=== PATIENT | female | born 1940 | race Caucasian/White ===

== ENCOUNTER 2019-01-01 01:46 | Inpatient (IN) | payer MEDICARE ==
[~2019-01-01] VITALS: Ht 154.9 cm; Wt 71.2 kg
[2019-01-01 02:10] VITALS: BP 143/91
--- NOTE | 2019-01-01 02:10 | NUR ---
ED Nurse Note: noted left facial drooping.
--- NOTE | 2019-01-01 02:10 | NUR ---
ED Nurse Note: pt brought in by sara from home c/c epigastric region pain and dizziness started about an hour ago, pt reports she just came to [place] from [facility] that she had stroke on 12/19/18 and was hospitalized in [place]. noted marked weakness on left side of patient. pt AA&ox4, gcs=15, skin warm and dry, resp even and unlabored on RA, -n/v/d, will cont monitor. skin intact. vss.
[2019-01-01] MEDS: Sodium Chloride 550 ML IV SCH ×3 (02:14→09:49)
--- NOTE | 2019-01-01 02:15 | NUR ---
ED Nurse Note: pt off to CT.
[2019-01-01 02:19] LABS: BASOPHILS % (AUTO) 1.2 % (0.0-2.0); HEMATOCRIT 56.3 % (37.0-47.0); MEAN CORPUSCULAR VOLUME 88 FL (80-99); MONOCYTES % (AUTO) 5.9 % (1.0-10.0); NEUTROPHILS % (AUTO) 72.9 % (45.0-75.0); PLATELET COUNT 210 K/UL (150-450); RED BLOOD COUNT 6.37 M/UL (4.20-5.40); RED CELL DISTRIBUTION WIDTH 11.5 % (11.6-14.8); WHITE BLOOD COUNT 8.7 K/UL (4.8-10.8)
[2019-01-01 02:29] LABS: ANION GAP 10 mmol/L (5-15); BLOOD UREA NITROGEN 26 mg/dL (7-18); CARBON DIOXIDE 23 MMOL/L (21-32); CHLORIDE 109 MMOL/L (98-107); CREATININE 0.8 MG/DL (0.55-1.30); POTASSIUM 3.9 MMOL/L (3.5-5.1); SODIUM 142 MMOL/L (136-145)
--- NOTE | 2019-01-01 02:30 | NUR ---
ED Nurse Note: provided pt with extra warm blanket for comfort, pt advised to notify staff if needed assist.
--- NOTE | 2019-01-01 02:32 | Emergency Room Report ---
History of Present Illness General Chief Complaint: Dizziness Source: Patient, Family Member Present Illness HPI On December 19 the patient had slurred speech drooling and left-sided weakness - this occurred in the afternoon. She is not sure of exact time.. The next day she was nonambulatory and was taken to the hospital in [place]. She was diagnosed with a stroke at that time however it was past the time to be able to give her thrombolytics or have a clot recovery if that was available. Apparently she had a fall a few days before that. She also has a history of uncontrolled hypertension. She was discharged to home after 4 days. She had in-home health care there. She has been having difficulty swallowing and lack of sensation in her mouth and drooling from the left-hand side. Had a mild cough recently. She denies any fevers or chills. She denies headache at this time. She is been able to take her medications. However the family felt that she was not receiving adequate care in [place] and brought her back. She came to the emergency department 1 hour after landing. No fevers, chills, sore throat, chest pain, palpitations, nausea, vomiting, diarrhea, dysuria, abdominal pain, shortness of breath, joint pain, rashes, depression, anxiety, visual changes, headache. Allergies: Coded Allergies: No Known Allergies (Unverified , 01/01/19) Patient History Past Medical History: see triage record Social History: Denies: smoking Social History Narrative Living in [place], retired and Last Menstrual Period: na Now: No Reviewed Nursing Documentation: PMH: Agreed; PSxH: Agreed Nursing Documentation-PMH Hx Hypertension: Yes Hx Cerebrovascular Accident: Yes Review of Systems All Other Systems: negative except mentioned in HPI Physical Exam Vital Signs Date Time Temp Pulse Resp B/P (MAP) Pulse Ox O2 Delivery O2 Flow Rate FiO2 01/01/19 01:51 97.2 66 17 160/98 (118) 100 Room Air Sp02 EP Interpretation: reviewed, normal General Appearance: well appearing, no apparent distress, GCS 15 Head: normocephalic Eyes: bilateral eye normal inspection, bilateral eye PERRL, bilateral eye EOMI ENT: moist mucus membranes, other - Left nasolabial fold weakness Neck: supple Respiratory: chest non-tender, lungs clear, normal breath sounds Cardiovascular #1: regular rate, rhythm Cardiovascular #2: 2+ radial (R) Gastrointestinal: normal inspection, normal bowel sounds, non tender, no mass, non-distended Genitourinary: no CVA tenderness Musculoskeletal: back normal, normal range of motion Neurologic: alert, oriented x3, motor weakness - L weakness, sensory deficit - Left, Babinski - left Psychiatric: mood/affect normal Skin: no rash Medical Decision Making Diagnostic Impression: Primary Impression: Status post stroke Additional Impressions: Polycythemia Failure to thrive Qualified Codes: R62.7 - Adult failure to thrive Dysphagia as late effect of cerebrovascular accident (CVA) ER Course Patient suffered a left MCA infarct on December 19. She has been having difficulty with swallowing and unable to eat well or be cared for in [place]. Differential includes CVA extension, acute myocardial infarction, electrolyte imbalance, dysphagia secondary to stroke, occult infection amongst others. Patient will be evaluated with CT of the head, EKG, chest x-ray and labs. The patient will be treated with IV hydration here. She denies pain at this time. Apparently the family feel that she was unable to get adequate care in [place]. EKG without acute injury. Chest x-ray left base. CT of the head with right MCA subacute infarct. Labs significant for polycythemia with normal white count. Other labs unremarkable. Due to the subacute infarct the patient needs to be admitted here. In addition the polycythemia needs to be evaluated in she needs IV hydration. She needs to have swallowing evaluation before continuing oral intake. Patient admitted to Dr. Aponte. Laboratory Tests Test 01/01/19 02:05 01/01/19 02:58 White Blood Count 8.7 K/UL (4.8-10.8) Red Blood Count 6.37 M/UL (4.20-5.40) H Hemoglobin 19.6 G/DL (12.0-16.0) *H Hematocrit 56.3 % (37.0-47.0) H Mean Corpuscular Volume 88 FL (80-99) Mean Corpuscular Hemoglobin 30.8 PG (27.0-31.0) Mean Corpuscular Hemoglobin Concent 34.8 G/DL (32.0-36.0) Red Cell Distribution Width 11.5 % (11.6-14.8) L Platelet Count 210 K/UL (150-450) Mean Platelet Volume 6.9 FL (6.5-10.1) Neutrophils (%) (Auto) 72.9 % (45.0-75.0) Lymphocytes (%) (Auto) 17.0 % (20.0-45.0) L Monocytes (%) (Auto) 5.9 % (1.0-10.0) Eosinophils (%) (Auto) 3.0 % (0.0-3.0) Basophils (%) (Auto) 1.2 % (0.0-2.0) Prothrombin Time 10.2 SEC (9.30-11.50) Prothrombin Time INR 1.0 (0.9-1.1) PTT 25 SEC (23-33) Sodium Level 142 MMOL/L (136-145) Potassium Level 3.9 MMOL/L (3.5-5.1) Chloride Level 109 MMOL/L (98-107) H Carbon Dioxide Level 23 MMOL/L (21-32) Anion Gap 10 mmol/L (5-15) Blood Urea Nitrogen 26 mg/dL (7-18) H Creatinine 0.8 MG/DL (0.55-1.30) Estimate Glomerular Filtration Rate mL/min (>60) Glucose Level 137 MG/DL (74-106) H Calcium Level 10.0 MG/DL (8.5-10.1) Total Bilirubin 0.6 MG/DL (0.2-1.0) Aspartate Amino Transferase (AST) 20 U/L (15-37) Alanine Aminotransferase (ALT) 38 U/L (12-78) Alkaline Phosphatase 72 U/L (46-116) Total Creatine Kinase 21 U/L (26-308) L Troponin I 0.000 ng/mL (0.000-0.056) Pro-B-Type Natriuretic Peptide 84 pg/mL (0-125) Total Protein 6.9 G/DL (6.4-8.2) Albumin 3.6 G/DL (3.4-5.0) Globulin 3.3 g/dL Albumin/Globulin Ratio 1.1 (1.0-2.7) Urine Color Brown Urine Appearance Clear Urine pH 5 (4.5-8.0) Urine Specific [place] 1.030 (1.005-1.035) Urine Protein 2+ (NEGATIVE) H Urine Glucose (UA) Negative (NEGATIVE) Urine Ketones Negative (NEGATIVE) Urine Blood Negative (NEGATIVE) Urine Nitrite Negative (NEGATIVE) Urine Bilirubin Negative (NEGATIVE) Urine Urobilinogen 1 MG/DL (0.0-1.0) H Urine Leukocyte Esterase 1+ (NEGATIVE) H Urine RBC 0-2 /HPF (0 - 2) Urine WBC 0-2 /HPF (0 - 2) Urine Squamous Epithelial Cells Occasional /LPF Urine Calcium Oxalate Crystals Few /LPF (NONE) Urine Bacteria Occasional /HPF (NONE) EKG Diagnostic Results Rate: normal Rhythm: NSR ST Segments: no acute changes Rhythm Strip Diag. Results EP Interpretation: yes Rhythm: NSR, no PVC's, no ectopy Chest X-Ray Diagnostic Results Chest X-Ray Diagnostic Results : Chest X-Ray Ordered: Yes # of Views/Limited/Complete: 1 View Indication: Other EP Interpretation: Yes Interpretation: no effusion, no pneumothorax, other - atelectasis L Impression: Other Electronically Signed by: Electronically signed by Naveen Curtis MD CT/MRI/US Diagnostic Results CT/MRI/US Diagnostic Results : Imaging Test Ordered: head Impression 1. Subacute versus old infarct in the right periventricular region. 2. Chronic small vessel ischemic disease and age-related cerebral atrophy. Last Vital Signs Date Time Temp Pulse Resp B/P (MAP) Pulse Ox O2 Delivery O2 Flow Rate FiO2 01/01/19 09:12 64 132/80 01/01/19 08:00 98.0 18 97 01/01/19 06:29 Room Air Status: improved Disposition: ADMITTED INPATIENT Condition: Serious Naveen Curtis MD Jan 01, 2019 02:32
[2019-01-01 02:40] LABS: ALANINE AMINOTRANSFERASE 38 U/L (12-78); ALBUMIN 3.6 G/DL (3.4-5.0); ALBUMIN/GLOBULIN RATIO 1.1 (1.0-2.7); ALKALINE PHOSPHATASE 72 U/L (46-116); ASPARTATE AMINO TRANSFERASE 20 U/L (15-37); BILIRUBIN,TOTAL 0.6 MG/DL (0.2-1.0); CREATINE KINASE 21 U/L (26-308); HEMOGLOBIN 19.6 G/DL (12.0-16.0)
[2019-01-01 03:00] VITALS: BP 136/81
--- NOTE | 2019-01-01 03:00 | NUR ---
ED Nurse Note: pt's step son at the bedside, pt's clothes given to step son and sent home. Dana Rene [phone]
--- NOTE | 2019-01-01 03:08 | Diagnostic Imaging Report ---
EXAM: CT Head Without Intravenous Contrast CLINICAL HISTORY: CVA TECHNIQUE: Axial computed tomography images of the head/brain without intravenous contrast. CTDI is 70 mGy and DLP is 1379 mGy-cm. One or more of the following dose reduction techniques were used: automated exposure control, adjustment of the mA and/or kV according to patient size, use of iterative reconstruction technique. COMPARISON: No relevant prior studies available. FINDINGS: Brain: Subacute versus old infarct in the right periventricular region measures 2.3 x 0.9 cm. Chronic small vessel ischemic disease. Generalized age-related cerebral volume loss. No hemorrhage. Ventricles: Unremarkable. No ventriculomegaly. Bones/joints: Unremarkable. No acute fracture. Soft tissues: Unremarkable. Sinuses: Unremarkable as visualized. No acute sinusitis. Mastoid air cells: Unremarkable as visualized. No mastoid effusion. IMPRESSION: 1. Subacute versus old infarct in the right periventricular region. 2. Chronic small vessel ischemic disease and age-related cerebral atrophy.
[2019-01-01 03:14] LABS: APPEARANCE,URINE CLEAR; BILIRUBIN, URINE NEGATIVE (NEGATIVE); COLOR,URINE BROWN; GLUCOSE, URINE (UA) NEGATIVE (NEGATIVE); KETONES,URINE NEGATIVE (NEGATIVE); LEUKOCYTE ESTERASE ,URINE 1+ (NEGATIVE); NITRITE,URINE NEGATIVE (NEGATIVE); PH,URINE 5 (4.5-8.0); PROTEIN,URINE 2+ (NEGATIVE); UROBILINOGEN,URINE 1 MG/DL (0.0-1.0)
--- NOTE | 2019-01-01 03:24 | NUR ---
HAND-OFF: Report given to LOGAN Snell and endorsed care, vss, iv intact and patent,safety precautions in place.
--- NOTE | 2019-01-01 03:25 | NUR ---
ED Nurse Note: report received asaelanthony Zhao RN. Pt in bed. VSS.
--- NOTE | 2019-01-01 03:33 | Diagnostic Imaging Report ---
EXAM: XR Chest, 1 View CLINICAL HISTORY: CVA TECHNIQUE: Frontal view of the chest. COMPARISON: No relevant prior studies available. FINDINGS: Lungs: Linear airspace disease is seen at the left lung base. Pleural space: Unremarkable. No pneumothorax. Heart: Unremarkable. No cardiomegaly. Mediastinum: Unremarkable. Bones/joints: Unremarkable. IMPRESSION: Linear airspace disease at the left lung base which could represent atelectasis, scarring, or pneumonia. No other acute findings.
[2019-01-01] MEDS ORDERED: LOPRESSOR HCT1 EAC3 ORAL (04:29)
[2019-01-01] MEDS ORDERED: NORVASC5 MG ORAL (04:29)
[2019-01-01] MEDS ORDERED: MICARDIS80 MG ORAL (04:29)
[2019-01-01] MEDS ORDERED: HYDROCHLOROTHIA25 MG ORAL ×2 (04:29→05:21)
[2019-01-01] MEDS ORDERED: ASPIRIN81 MG ORAL (04:29)
[2019-01-01] MEDS ORDERED: METOPROLOL SUCC25 MG ORAL ×2 (04:29→05:21)
[2019-01-01] MEDS ORDERED: LIPITOR80 MG ORAL ×2 (04:29→05:21)
--- NOTE | 2019-01-01 04:43 | NUR ---
ED Nurse Note: pt brought to room 415-1 via gurney in stable condition. VSS. Report given to LOGAN Elizalde. Belonging list signed.
--- NOTE | 2019-01-01 04:45 | NUR ---
NURSE NOTES: Received report from LOGAN Snell in ER. Patient arrived in the unit at 0445. Patient AAO x 4. Left sided weakness s/p stroke apparent. Breathing unlabored without signs of distress, discomfort, or sob. Denies pain at this time. Oriented to the unit. IV site noted on the right forearm intact, clean, dry, and patent. Bed placed at the lowest with alarm, brake, and side rails up for safety. Belonging confirmed with patient (watch and reading glasses), kept by the patient. Skin intact with dryness on the bilateral groins noted. Skin cool to touch. Provided blanket and socks. VS: 138/76 T.97.5 HR 61 RR 14 O2 93% on room air. Dr. Eulogio Aponte called to place an order for admission. Medication order confirm and read back: amlodipine 5mg BID, aspirin 325 mg tab oral daily, atorvastatin 80 mg tab oral at bedtime, hydrochlorothiazide 25 mg oral daily, and metoprolol succinate 25 mg oral daily. No IVF ordered. Regular diet. ST/OT/PT evaluation. Full code. Heparin 5000u/ml for DVT prophylaxis. No labs. Consults will be made after further review. Will continue to monitor and provide care as ordered. Addendum: 01/01/19 at 0652 by Tonio Hagan RN Synthroid 125 mcg PO daily was confirmed with Dr. Andrade.
[2019-01-01] MEDS ORDERED: ASPIRIN325 MG ORAL (05:21)
[2019-01-01] MEDS ORDERED: AMLODIPINE BESYL5 MG ORAL (05:21)
[2019-01-01] MEDS: Levothyroxine 125mcg tab ORAL SCH (06:49)
--- NOTE | 2019-01-01 07:00 | NUR ---
NURSE NOTES: Reached Dr. Eulogio Aponte to clarify Hydrochlorothiazide medication. Waiting for call back. Informed AM nurse.
[2019-01-01 08:00] VITALS: BP 132/80
--- NOTE | 2019-01-01 08:10 | NUR ---
NURSE NOTES: Received report from Minsu, RN. The patient is resting on bed without acute distress or shortness of breath. The patient's bed in the lowest position, call light in reach, and fall and aspiration precaution reinforced. IV site intact and patent. Will continue plan of care.
--- NOTE | 2019-01-01 08:23 | NUR ---
NURSE NOTES: Reported Dr. Aponte regarding CT of head report. Will wait for the call back. Will continue plan of care.
--- NOTE | 2019-01-01 08:34 | NUR ---
HAND-OFF: Report given to Reina Jane RN.
[2019-01-01] MEDS: Metoprolol Succinate XL 25mg tab ORAL SCH (09:12)
[2019-01-01] MEDS: Heparin 5000 units/ml inj SUBQ SCH ×2 (09:13→21:33)
--- NOTE | 2019-01-01 10:23 | NUR ---
NURSE NOTES: Notified Dr. Aponte regarding head CT report again and the patient's complaints of headache. No pain medication ordered at this time. Will wait for call back and will closely monitor the patient. Will carry out the order as soon as receives it. Will continue plan of care.
--- NOTE | 2019-01-01 10:59 | History & Physical ---
History and Physical History & Physicial HP dictated # [id number] Jesse Aponte MD Jan 01, 2019 10:59
[2019-01-01] MEDS ORDERED: Excedrin Migraine tab ORAL PRN (11:15)
[2019-01-01 12:00] VITALS: BP 144/82
--- NOTE | 2019-01-01 12:51 | NUR ---
NURSE NOTES: Dr. Aponte ordered Excedrin for headache and consulted Dr. Ivey, neurologist, for further work up. The patient denies of vomiting or blurry vision at this time. Will continue to monitor the patient. Will continue plan of care.
--- NOTE | 2019-01-01 15:07 | NUR ---
PT Note PT nadia completed, treatment initiated. Patient has left hemiparesis with poor sitting and standing balance. Patient needs PT to increase her muscle strength/motor return and increase her balance to improve her functional mobility and initiate gait. Patient is a good candidate for acute rehab. Addendum: 01/01/19 at 1508 by MERISSA SWANSON PT Amended: Links added.
--- NOTE | 2019-01-01 15:13 | Consultation ---
Consult Note Consult Note NEUROLOGY CONSULTATION: Full note dictated #[id number] 78-year-old, right-handed, lady, with an approximately 25-year history of hypertension, stroke in 2017 followed by another stroke the same year associated with unsteadiness on her feet but she is unable to localize the side of her weakness. On December 19, 2018 she was in [place] where she has a home and was sitting with her tmd teacher assistant. Her tmd teacher assistant noticed that she was slurring her words and that was the first time she noticed that something was amiss. She stayed at home and tried to go into her bedroom but she apparently could not hold herself and fell to the floor. She was on the floor until the next day when their property management assistant found her on the floor and the ambulance was called in and she was taken to the hospital. She noticed that her left side was significantly weak she was slurring her speech and she was drooling on the left side of her mouth. She denies any problems with language, vision, or sensations. She did have multiple investigations performed and she was told that she had a large stroke. She was kept in the hospital for a few days and then sent home to rehabilitate. Since the stroke occurred she has improved minimally but is still significantly disabled. On 12/31/2018 she flew into [place] and presented to the [facility] emergency room and has since been admitted. On exam: Fully oriented. Recent memory intact. Res[place] through [place] only. Math normal. Visual-spatial function normal. Speech dysarthric. Language normal. Cranial nerves II through XII intact except for left seventh central facial paresis. Motor: Tone minimally spastic in left upper and lower extremities G 5/5 power on the right side On left side G 3/5 in deltoid, G 4-/5 in biceps, triceps, finger extensors, wrist extensors G 4/5 in finger flexors, wrist flexors. G 3/5 and iliopsoas, ankle dorsiflexors, toe extensors; G 5/5 in quadriceps; G 4+/5 in hamstrings; G 4/5 and ankle plantar flexors and toe flexors. Sensory: Intact to pinprick light touch and graphesthesia. Reflexes: 1+ on the right and 1++ on the left at the biceps, triceps, brachioradialis, and knees. 0 at both ankles. Plantar response extensor on the left and flexor on right. Coordination: [id number] and [id number] normal on the right side unable to do on left side. Stance: Stood up with support on both sides. Gait: Unable to walk because of inability to control left lower extremity. Impression: Sudden onset of left hemiparesis and dysarthria with no sensory or visual problems on December 19, 2018 with some improvement in function. CT of brain with subacute infarct seen in right deep white matter. History and examination associated with recent right deep white matter infarct most probably related to hypertensive cerebrovascular disease. The patient also had significant elevation in her hemoglobin which may or may not be related to polycythemia. Recommendations: MRI of brain to evaluate for acute on chronic cerebrovascular disease. Carotid duplex Blood pressure control -aim for blood pressure and physiological range that is equal to less than 120/80. Continue Lipitor Change antiplatelet agent from aspirin to Plavix for added secondary stroke prevention benefits. PT/OT/SLT. Consider acute rehabilitation in the near future. Víctor Ivey M.D., M.S.P.H. Víctor Ivey MD Jan 01, 2019 15:13
[2019-01-01 16:00] VITALS: BP 143/80
--- NOTE | 2019-01-01 16:15 | History and Physical Report ---
DATE OF ADMISSION: 01/01/2019 CHIEF COMPLAINT: The patient had a stroke with left-sided weakness on 12/19/2018. HISTORY OF PRESENT ILLNESS: This is an 78-year-old white female, who was residing in [place]. On 12/19/2018, she had a CVA with left-sided weakness and left facial droop. She was taken to a hospital in [place] and then subsequently was discharged home. She had a caregiver at home and somebody was coming to her house for physical therapy on a daily basis. However, she was not getting better, the yolieon took her in a flight to [facility] and then brought her into the emergency room here. The patient stated that she has been drooling and even coughing when she tries to swallow her saliva. PAST MEDICAL HISTORY: History of hypertension, which has not been well controlled for years. She stated that she has had side effects to lot of medications, so probably current compliance was an issue. MEDICATIONS: Medications on admission reviewed. SOCIAL HISTORY: No history of smoking or alcohol abuse. As mentioned, the patient used to live in [place], she has a house there and also she has a house in [place]. ALLERGIES: No known drug allergies. REVIEW OF SYSTEMS: As above. PHYSICAL EXAMINATION: GENERAL: The patient is an elderly female. She has a left facial droop. She is able to speak incoherent . VITAL SIGNS: Blood pressure 132/80, pulse 64, temperature 98, and respirations 18. HEENT: [place] conjunctivae. Anicteric sclerae. NECK: Supple. LUNGS: Clear to auscultation. HEART: S1, S2 without murmurs or rubs. ABDOMEN: Soft and nontender. EXTREMITIES: No cyanosis or edema. NEUROLOGICAL: The patient has left facial droop. Left-sided weakness. LABORATORY FINDINGS: UA shows 2+ protein. Chemistry panel shows serum sodium 142, potassium 3.9, chloride 109, CO2 23, BUN 26, and creatinine 0.8. Blood sugar is 137. CBC shows a WBC of 8700, hematocrit 56.3, hemoglobin 19.6, and platelets 210,000. ASSESSMENT: This is an 78-year-old white female with recent history of stroke with left-sided weakness, and left facial droop. CT of the brain is showing subacute versus old infarct in the right periventricular region, chronic small vessel ischemic changes, and age-related cerebral atrophy. On chest x-ray, there is linear density of the left lung base, which could represent atelectasis, scarring, or pneumonia. The patient has a history of hypertension. Blood pressure is controlled at this point. She has also 2+ proteinuria and possibly from her hypertension she may have some underlying CKD. PLAN: The patient will be hydrated with IV fluids. She will be on aspirin. Speech therapist will see the patient. I will keep the patient NPO at this time. She will need swallowing evaluation. The patient will be seen by Dr. Ivey in neurology consultation. Physical therapy will be ordered and eventually the patient needs [facility]. Jesse Aponte M.D. DR: IRLANDA JOB#: [id number] CC: SARA
[2019-01-01] MEDS: D5 1/2NS 1,000 ML IV SCH (17:16)
--- NOTE | 2019-01-01 17:34 | NUR ---
NURSE NOTES: The patient is stable without acute distress or shortness of breath. Will continue plan of care.
--- NOTE | 2019-01-01 18:47 | NUR ---
NURSE NOTES: Medication receipt #s are as follows: [id number], [id number], and [id number]. Will continue plan of care.
--- NOTE | 2019-01-01 18:59 | NUR ---
HAND-OFF: Report given to Minsu, RN. The patient is resting on the bed without acute distress or shortness of breath. The patient's bed in the lowest position, call light in reach, and fall and strict aspiration precaution reinforced. IV site is intact and patent. Endorsed plan of care.
--- NOTE | 2019-01-01 19:06 | NUR ---
NURSE NOTES: Received report from LOGAN Huang. Patient awake, alert, and verbally responsive to let her needs known. Left sided weakness apparent. Patient breathing unlabored without signs of distress, discomfort, or sob. Denies pain at this time. IV on right forearm intact and patent running fluid as ordered. Bed placed at the lowest with alarm, brake, and side rails up for safety. Call light placed within reach and encourage to call whenever help is needed. Will continue to monitor and provide care as ordered.
[2019-01-01 20:00] VITALS: BP 139/77
--- NOTE | 2019-01-01 20:45 | Consultation ---
DATE OF CONSULTATION: 01/01/2019 NEUROLOGY CONSULTATION REQUESTING PHYSICIAN: Jesse Aponte M.D. HISTORY: Ms. Guido Rene is an 78-year-old, right-handed, lady, who has had high blood pressure for the last 25 years or so. In 2017, she apparently had a stroke, which caused unsteadiness on her feet. She is uncertain as to whether one side was weaker than the other. She was in the hospital for a few days and was improving and then on the day she left the hospital, she again developed unsteadiness on her feet and she was told that she had a second stroke. She however improved following that and was functioning well. On December 19, 2018, she was in [place] where she has a home and was sitting with a computer discovery teacher. Her computer discovery teacher noticed that she was slurring her words and that something was amiss. After the computer discovery teacher went home, she stayed at home and tried to go to her bedroom, but when she tried to stand up, she was unable to support herself on her legs and fell to the floor. She was on the floor until the next day when her commercial property administrator found her on the floor, he called in an ambulance and she was taken to a hospital. At that time, she noticed that her left side was significantly weak. She was also continuing to slur her speech and she was drooling from the left angle of her mouth. She did not notice any problems with language, vision, or sensations. At the hospital in [place], she had multiple investigations performed including brain imaging and imaging of the carotid vessels and heart. She was told that all these imaging studies were normal except that she had "a massive stroke". She was hospitalized for a few days and then sent home and was getting therapy at home. However, a decision was made to bring her back to the [facility] and on 12/31/2018, she flew into [place] and presented to the [facility] Emergency Room and has since been admitted. At this point in time, she continues to be significantly weak on the left side and slurring her speech. She however feels that she is definitely better than on the first day when she had the stroke. PAST MEDICAL HISTORY: Significant for hypertension for approximately 25 years and hypothyroidism in the past. FAMILY HISTORY: Nothing significant. PERSONAL HISTORY: Home: She lives in a shelter community in [place]. 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 Habits: She denies the use of tobacco or illicit drugs, but does consume approximately 1 alcoholic drink a day. MEDICATIONS: Present medications include atorvastatin 80 mg daily, Excedrin Migraine p.r.n., Tylenol p.r.n., Norvasc, aspirin 325 mg daily, metoprolol, heparin for DVT prophylaxis, and Synthroid. PHYSICAL EXAMINATION: GENERAL: She is a well-developed, well-nourished, pleasant lady, lying in bed, in no acute distress. VITAL SIGNS: Pulse 68/ minute, blood pressure 144/82 mmHg, respirations 18/minute, and temperature 97.2 degrees Fahrenheit. HEAD: Normocephalic and atraumatic. NECK: No neck rigidity was observed. EENT: Benign. NEUROLOGICAL EXAMINATION: MENTAL STATUS EXAMINATION: She was awake and alert. She was oriented to person, place, and time. She was able to recall 3/3 words immediately after 1 minute and after 3 minutes. She was able to remember presidents Trump through [place] with minimum hints. Her mathematical skills were good. Her visuospatial function was preserved. SPEECH: She had mild labial dysarthria. LANGUAGE: She had no aphasia. CRANIAL NERVE EXAMINATION: II: The visual ruiz were intact on confrontation testing. III, IV & : The external ocular movements were full and the pupils 3 mm in diameter and reactive sluggishly to light. V: She had normal facial sensations and the temporales, masseters, and pterygoids functioned normally. VII: She had a left seventh central facial paresis. VIII: She was able to hear well bilaterally and had no nystagmus. IX: The palate moved symmetrically on phonation. X: She had no hoarseness of voice. XI: Sternocleidomastoids and trapezii functioned normally. XII: The tongue was in the midline without any fasciculations or atrophy. MOTOR SYSTEM: The tone was normal on the right side and minimally spastic on the left side. Examination of muscle mass revealed no focal wasting. Examination of power revealed G 5/5 power on the right side. On the left side, she had G 3/5 in the deltoid, G 4-/5 in the biceps, triceps, finger extensors, and wrist extensors, G 4/5 in the finger flexors and wrist flexors, G 3/5 in the iliopsoas, ankle dorsiflexors, and toe extensors, G 5/5 in the quadriceps, G 4+/5 in the hamstrings, G 4/5 in the ankle plantar flexors and toe flexors. SENSORY EXAMINATION: She had intact sensations to pinprick, light touch, and graphesthesia. REFLEXES: 1+ on the right and 1++ on the left at the biceps, triceps, brachioradialis, and knees, 0 at both ankles. The plantar response was extensor on the left and flexor on the right. COORDINATION: Xjiwao-og-ibhg and tjir-pz-amuw testing were performed well on the right side, but could not be performed on the left side. STANCE: She stood up with support on both sides. GAIT: She was unable to walk even with support on both sides because of inability to control her left lower extremity. DIAGNOSTIC IMPRESSION: 1. Ms. Guido Rene is an 78-year-old, right-handed, lady, who does have a past history of hypothyroidism, hypertension, stroke like symptoms with some lower extremity weakness two years ago, and then the sudden onset of slurring of speech and left-sided weakness on December 19, 2018. 2. She was flown into [place] on 12/31/2018 from [place] for continued left-sided weakness and slurring of speech. 3. On neurological examination, at this time, she does demonstrate problems with memory, dysarthria, left seventh central facial paresis, and left upper greater than lower extremity hemiparesis. The sensory examination is benign. The deep tendon reflexes are slightly brisker on the left side compared to the right. The ankle jerks are absent and the plantar response is extensor on the left and flexor on the right. She is unable to perform ujpdrx-pf-vwte and ncvh-og-polk testing on the left side. She does stand up with support on both sides, but is unable to walk because of inability to control her left lower extremity. 4. The CT scan of the brain without contrast performed on 12/31/2018 revealed a subacute infarct in the deep white matter on the right side. 5. Laboratory data revealed hemoglobin elevated at 19.6 G with a normal WBC count and normal platelet count. The chemistry panel revealed a chloride elevated at 109, BUN elevated at 26, and glucose elevated at 137. 6. The urinalysis revealed 1+ leukocyte esterase with 0- 2 red blood cells and white blood cells per high-power field. 7. 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 The most likely etiology for the patient's stroke would be small vessel cerebrovascular disease related to high blood pressure, possibly dyslipidemia, and possibly glucose intolerance. In addition, the patient also has an elevated hemoglobin and it is unclear whether this is related to polycythemia or due to other reasons. RECOMMENDATIONS: 1. Agree with management thus far. 2. An MRI scan of the brain will be ordered to evaluate the patient for acute on chronic cerebrovascular disease. 3. A carotid duplex will be ordered to evaluate the patient for hemodynamically significant carotid disease. 4. The patient's blood pressure should be controlled and brought down into physiological range that is < 120/80 mm. 5. The patient's dyslipidemia should be controlled with Lipitor. 6. It may be worth changing her antiplatelet agent from aspirin to Plavix to give her added secondary stroke prevention benefits. 7. Physical, occupational, and speech and language therapy should be started. 8. Consideration should be made to transfer the patient to an acute rehabilitation setting in the near future. Thank you for entrusting me with the care of Ms. Rene. I shall follow her with you. Víctor Ivey M.D., M.S.P.H. DR: Aleksandar JOB#: [id number] SARA
[2019-01-01] MEDS: Atorvastatin 80mg tab ORAL SCH (21:25)
--- NOTE | 2019-01-01 21:51 | NUR ---
NURSE NOTES: Reached Dr. Aponte to notify patient having chest pressure, radiating to kidney, shooting pain through her lower extremities, with lightheadedness. Patient was offered pain medication for headache which was refused. Vital signs stable 139/77 T. 97.4 RR 20 O2 94% room air HR 62. Dr. Aponte ordered timed troponin lab for tomorrow 4 am, 12-lead EKG tomorrow, morphine 2 mg IVP Q 3hr PRN for moderate pain, morphine 5 mg IVP Q 3 hr PRN for severe pain, and transfer to telemetry. Charge nurse made aware of the transfer order. Will continue to monitor and provide care as ordered. Addendum: 01/01/19 at 2325 by Tonio Hagan RN Amend: STAT 12-lead EKG, not tomorrow.
[2019-01-01] MEDS ORDERED: Morphine Sulfate 2mg/ml Inj(IV/IM USE ONLY) IVP PRN (22:00)
[2019-01-01] MEDS ORDERED: Morphine Sulfate 4mg/ml Inj (IV USE ONLY) IVP PRN (22:00)
--- NOTE | 2019-01-01 22:25 | NUR ---
NURSE NOTES: Report given to LOGAN Zaldivar in [place]. Patient has been transferred to room 236-2 in [facility]. Order carried out as telemetry but no room available. Placed in [place], next to telemetry. Charge nurse and supervisor hot strip mill aware. Patient AAO x 4. Breathing unlabored but shallow on room air. Patient denies difficulty breathing at this time. Patient has 5/10 pain that feels like pressure on the chest radiating to her kidney and shooting down to her lower extremities. She feels weaker on her left arm and has lightheadedness that is different from her normal migraines. Pain information informed to received RN in detail and Dr. Aponte made aware. Otherwise, patient in stable condition. According to patient, patient's family member step-son and daughter brought in more belonging during daytime which was went over in front of the patient with receiving RN. New belongings: red bag with wallet (2 IDs, 4 Credit Cards, several gift cars, 20 pesos x 3, 100 pesos x 2), documents, passport, juicy sunglass with the [employer], [employer] laptop, home medications (sent down to pharmacy in security bag by AM nurse), [employer] s10, and brown bag with pajama pants, 2shirts, 1 shoes, and bra. Otherwise previous belongings: hand watch and prescription glasses confirmed. Skin intact. Patient explained reason for the transfer and verbalize understanding.
--- NOTE | 2019-01-01 22:30 | NUR ---
NURSE NOTES: Received patient from [facility] Nurse Minsu RN. Patient is awake and oriented x4, receiving oxygen via room air, patient tolerating well, showing no signs of respiratory distress. Purewick is patent and draining. IV site is right forearm 20g receiving D5 1/2 NS at 75cc/hr. Bed is locked, placed in lowest position, side rails up x3, bed alarm on, heart monitor on, belonging list signed. Will continue to monitor.
[2019-01-02] VITALS: BP 132/83
[2019-01-02 04:00] VITALS: BP 127/71
[2019-01-02 04:55] LABS: EOSINOPHILS % (AUTO) 4.6 % (0.0-3.0); HEMATOCRIT 43.6 % (37.0-47.0); HEMOGLOBIN 15.4 G/DL (12.0-16.0); LYMPHOCYTES % (AUTO) 16.3 % (20.0-45.0); MEAN CORPUSCULAR VOLUME 88 FL (80-99); MONOCYTES % (AUTO) 6.4 % (1.0-10.0); NEUTROPHILS % (AUTO) 71.7 % (45.0-75.0); PLATELET COUNT 182 K/UL (150-450); RED BLOOD COUNT 4.95 M/UL (4.20-5.40); RED CELL DISTRIBUTION WIDTH 11.6 % (11.6-14.8); WHITE BLOOD COUNT 6.3 K/UL (4.8-10.8)
[2019-01-02] MEDS: D5 1/2NS 1,000 ML IV SCH (06:06)
[2019-01-02] MEDS: Levothyroxine 125mcg tab ORAL SCH (06:06)
--- NOTE | 2019-01-02 07:25 | NUR ---
HAND-OFF: Report given to Jelly Valdez RN. Patient in stable condition.
[2019-01-02 08:00] VITALS: BP 144/92
--- NOTE | 2019-01-02 08:00 | NUR ---
NURSE NOTES: received pt in the bed, awake, alert, oriented, vital signs stable, no co pain, no SOB, respiration regular, on RA, left side weakness, troponin negative, tolerate puree diet well, yellow urine, bed in low position, call light within reach.
[2019-01-02] MEDS: Metoprolol Succinate XL 25mg tab ORAL SCH (08:38)
[2019-01-02] MEDS: Heparin 5000 units/ml inj SUBQ SCH ×2 (08:39→20:27)
--- NOTE | 2019-01-02 08:40 | NUR ---
Terminal Computer OperatorRib Sawyer 78 Y/O Female from Home CC: complaints of dizziness and elevated BP SI: Stroke VS: BP: 160/98 HR: 66 RR 17 02 Sat 100% (RA) T: 97.2 NT: RBC 6.37 Hgb 19.6 Hct 56.3 UR Protein 2+ UR Urobilinogen 1 UR Leukocyte 1+ Chloride 109 BUN [address] Head: Subacute versus old infarct in the right periventricular region. Chronic small vessel ischemic disease and age-related cerebral atrophy. CXR: Linear airspace disease at the left lung base which could represent atelectasis, scarring, or pneumonia. No other acute findings. IS: NS 550ml IV Admitted to MedSurg MedSur status DCP: Pending Hospital Stay
--- NOTE | 2019-01-02 11:56 | Neurology Progress Note ---
Interim History Interim History Interim History Ms. Rene feels a little better. The strength on the left side is minimally better. She feels that her speech may be clearer. She sat, stood and did some balancing on a single leg today. She has not noticed any new neurologic symptoms. She did get her MRI of the brain but the study is still unavailable on the EMR. Review of Systems Neuro Review of Systems Benign. Objective Physical Exam Last Vital Signs Date Time Temp Pulse Resp B/P (MAP) Pulse Ox O2 Delivery O2 Flow Rate FiO2 01/02/19 09:00 Room Air 01/02/19 08:38 70 144/92 01/02/19 08:00 97.5 18 95 Laboratory Tests Test 01/02/19 04:10 White Blood Count 6.3 K/UL (4.8-10.8) Red Blood Count 4.95 M/UL (4.20-5.40) Hemoglobin 15.4 G/DL (12.0-16.0) Hematocrit 43.6 % (37.0-47.0) Mean Corpuscular Volume 88 FL (80-99) Mean Corpuscular Hemoglobin 31.2 PG (27.0-31.0) H Mean Corpuscular Hemoglobin Concent 35.4 G/DL (32.0-36.0) Red Cell Distribution Width 11.6 % (11.6-14.8) Platelet Count 182 K/UL (150-450) Mean Platelet Volume 6.5 FL (6.5-10.1) Neutrophils (%) (Auto) 71.7 % (45.0-75.0) Lymphocytes (%) (Auto) 16.3 % (20.0-45.0) L Monocytes (%) (Auto) 6.4 % (1.0-10.0) Eosinophils (%) (Auto) 4.6 % (0.0-3.0) H Basophils (%) (Auto) 1.0 % (0.0-2.0) Troponin I 0.000 ng/mL (0.000-0.056) Neurologic Exam Objective PHYSICAL EXAMINATION: GENERAL: She is a well-developed, well-nourished, pleasant lady, lying in bed, in no acute distress. HEAD: Normocephalic and atraumatic. NECK: No neck rigidity was observed. EENT: Benign. NEUROLOGICAL EXAMINATION: MENTAL STATUS EXAMINATION: She was awake and alert. She was oriented to person, place, and time. She was able to recall 3/3 words immediately after 1 minute and after 3 minutes. She was able to remember presidents Trump through [place] with minimum hints. Her mathematical skills were good. Her visuospatial function was preserved. SPEECH: She had mild labial dysarthria. LANGUAGE: She had no aphasia. CRANIAL NERVE EXAMINATION: II: The visual ruiz were intact on confrontation testing. III, IV & : The external ocular movements were full and the pupils 3 mm in diameter and reactive sluggishly to light. V: She had normal facial sensations and the temporales, masseters, and pterygoids functioned normally. VII: She had a left seventh central facial paresis. VIII: She was able to hear well bilaterally and had no nystagmus. IX: The palate moved symmetrically on phonation. X: She had no hoarseness of voice. XI: Sternocleidomastoids and trapezii functioned normally. XII: The tongue was in the midline without anyfasciculations or atrophy. MOTOR SYSTEM: The tone was normal on the right side and minimally spastic on the left side. Examination of muscle mass revealed no focal wasting. Examination of power revealed G 5/5 power on the right side. On the left side, she had G 3/5 in the deltoid, G 4-/5 in the biceps, triceps, finger extensors, and wrist extensors, G 4/5 in the finger flexors and wrist flexors, G 3/5 in the iliopsoas, ankle dorsiflexors, and toe extensors, G 5/5 in the quadriceps, G 4+/5 in the hamstrings, G 4/5 in the ankle plantar flexors and toe flexors. SENSORY EXAMINATION: She had intact sensations to pinprick, light touch, and graphesthesia. REFLEXES: 1+ on the right and 1++ on the left at the biceps, triceps, brachioradialis, and knees, 0 at both ankles. The plantar response was extensor on the left and flexor on the right. COORDINATION: Frwyhm-bw-qzdk and eldc-qg-jwya testing were performed well on the right side, but could not be performed on the left side. STANCE: She stood up with support on both sides. GAIT: She was unable to walk even with support on both sides because of inability to control her left lower extremity. Impression/Recommendations Diagnostic Impression 1. Ms. Guido Rene is an 78-year-old, right-handed, lady, who does have a past history of hypothyroidism, hypertension, stroke like symptoms with some lower extremity weakness two years ago, and then the sudden onset of slurring of speech and left-sided weakness on December 19, 2018. 2. She was flown into [place] on 12/31/2018 from [place] for continued left- sided weakness and slurring of speech. 3. She feels a little better. The strength on the left side is minimally better. She feels that her speech may be clearer. She sat, stood and did some balancing on a single leg today. She has not noticed any new neurologic symptoms. She did get her MRI of the brain but the study is still unavailable on the EMR. 4. On neurological examination, at this time, she does demonstrate problems with memory, dysarthria, left seventh central facial paresis, and left upper greater than lower extremity hemiparesis. The sensory examination is benign. The deep tendon reflexes are slightly brisker on the left side compared to the right. The ankle jerks are absent and the plantar response is extensor on the left and flexor on the right. She is unable to perform zcysmj-jx-ppyp and cemh-xi-mhve testing on the left side. She does stand up with support on both sides, but is unable to walk because of inability to control her left lower extremity. 5. The CT scan of the brain without contrast performed on 12/31/2018 revealed a subacute infarct in the deep white matter on the right side. 6. Laboratory data on my initial evaluation revealed hemoglobin elevated at 19.6 G with a normal WBC count and normal platelet count. The chemistry panel revealed a chloride elevated at 109, BUN elevated at 26, and glucose elevated at 137. 7. The urinalysis revealed 1+ leukocyte esterase with 0-2 red blood cells and white blood cells per high-power field. 8. Further laboratory tests have revealed that the Hb has dropped to 15.4 G and the TSH is elevated at 8.9. 9. The patient's history, neurological examination, laboratory data, and imaging studies are most consistent with a right brain subcortical stroke with dysarthria and hemiparesis on the left side. The most likely etiology for the patient's stroke would be small vessel cerebrovascular disease related to high blood pressure, possibly dyslipidemia, and possibly glucose intolerance. Recommendations 1. Continue present management. 2. Await MRI scan of the brain to evaluate the patient for acute on chronic cerebrovascular disease. 3. Await carotid duplex to evaluate the patient for hemodynamically significant carotid disease. 4. The patient's blood pressure should be controlled and brought down into physiological range that is < 120/80 mm. 5. The patient's dyslipidemia should be controlled with Lipitor. 6. Plavix 75 mg for secondary stroke prevention benefits. 7. Physical, occupational, and speech and language therapy should be started. 8. Consideration should be made to transfer the patient to an acute rehabilitation setting in the near future. Víctor Ivey M.D., M.S.P.H. Víctor Ivey MD Jan 02, 2019 11:56
[2019-01-02 12:00] VITALS: BP 152/91
--- NOTE | 2019-01-02 12:24 | Diagnostic Imaging Report ---
Indication: Left-sided weakness and slurred speech, dizziness, inability to stand up Technique: sagittal T1 fast spin echo, axial T1 FLAIR, axial T2 FLAIR, axial T2 FS PROPELLER, axial T2* GRE, axial diffusion weighted images. ADC and exponential ADC maps generated Comparison: Head CT 01/01/2019 Findings: There is an area of restricted diffusion in the right turner radiata. This corresponds to the area of decreased attenuation described on recent CT scan. No other foci of restricted diffusion demonstrated. Old lacunar infarcts are demonstrated in the right turner radiata, left thalamus. There is also an old right cerebellar hemispheric infarct. There is considerable periventricular deep white matter high T2 signal as well as high T2 signal within the bilateral basal ganglia and upper brainstem. No acute hemorrhage or edema. Punctate foci of susceptibility artifact are demonstrated in the left cerebellar hemisphere. No mass effect nor midline shift. There is age-related enlargement of the ventricles and extra axial CSF spaces. The vascular flow voids are preserved.. There is a mucous retention cyst versus polyp in the right maxillary sinus. The orbits are unremarkable.. The mastoids are clear. Impression: Positive for area of interest diffusion restriction in the right carotid radiata, corresponding to abnormality described on recent CT scan and consistent with a subacute infarct. Negative for acute intracranial bleed or mass effect Other chronic and age-related changes, as described Multiple old infarcts as described Critical value findings discussed by phone with Dr. Aponte at the time of interpretation
--- NOTE | 2019-01-02 12:38 | NUR ---
NURSE NOTES: MRI done, swallow eval done, PT worked with pt, tolerate well, was up on chair, no co pain, continue monitoring.
--- NOTE | 2019-01-02 14:56 | NUR ---
SPEECH PATHOLOGY: PATIENT REFERRED FOR ST EVALUATION BY DR DE LA GARZA. BEDSIDE SWALLOW EVALUATION COMPLETED POST CHART REVIEW AND INTERVIEW WITH LOGAN HER. PER POL PATIENT IS FULL CODE. IN CONVERSATION WITH HER, SHE REPORTED THAT THIS WAS HER 3RD STROKE (CURRENT MRI POSITIVE FOR SUBACUTE INFARCT) DYSPHAGIA RISK FACTORS FOR THIS 78 YEAR OLD FEMALE: HX OF RECURRING CVA/S, DYSARTHRIA, UNILATERAL FACIAL/LINGUAL/LABIAL WEAKNESS. 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 NO OVERT S/S OF ASPIRATION DURING P.O. TRIALS BUT PATIENT REPORTS HX OF COUGHING POST SWALLOW. RECOMMENDATIONS: 1. MODIFIED TEXTURE DIET: PUREE, NECTAR THICK LIQUIDS 2. MEALTIME PROTOCOL POSTED AT BEDSIDE TO MINIMIZE RISK OF ASPIRATION 3. ASSIST WITH MEALS 4. VIDEO SWALLOW STUDY IF NEEDED 5. ST TO FOLLOW UP FOR DIET TOLERANCE, NEUROMUSCULAR EXERCISES,, ONGOING ASSESSMENT, FAMILY/PATIENT/CAREGIVER EDUCATION THANK YOU FOR THIS REFERRAL.
--- NOTE | 2019-01-02 15:00 | NUR ---
NURSE NOTES: suspect shingles on the back, but per dr. Fay Molina, this is not shingles.
[2019-01-02 16:00] VITALS: BP 129/76
--- NOTE | 2019-01-02 16:47 | General Progress Note ---
Assessment/Plan Problem List: (1) HTN (hypertension) ICD Codes: I10 - Essential (primary) hypertension SNOMED: 17714317 (2) Chest pain ICD Codes: R07.9 - Chest pain, unspecified SNOMED: 87078347 (3) CVA (cerebral infarction) ICD Codes: I63.9 - Cerebral infarction, unspecified SNOMED: 583340804 Assessment/Plan: carotid doppler discussed with radiology reg MRI results PT swallowing eval watch BP cardiology consult Subjective Allergies: Coded Allergies: No Known Allergies (Unverified , 01/01/19) Subjective feels ok Objective Last 24 Hour Vital Signs Date Time Temp Pulse Resp B/P (MAP) Pulse Ox O2 Delivery O2 Flow Rate FiO2 01/02/19 16:00 97.4 78 20 129/76 (93) 95 01/02/19 12:00 71 01/02/19 12:00 97.8 71 18 152/91 (111) 97 01/02/19 09:00 Room Air 01/02/19 08:38 70 144/92 01/02/19 08:37 70 144/92 01/02/19 08:00 97.5 70 18 144/92 (109) 95 01/02/19 08:00 69 01/02/19 04:11 59 01/02/19 04:00 98.1 71 16 127/71 (89) 95 01/02/19 00:00 96.8 62 21 132/83 (99) 96 01/01/19 23:44 60 01/01/19 22:47 61 01/01/19 21:00 Room Air 01/01/19 20:00 97.4 62 20 139/77 (97) 94 01/01/19 17:25 71 143/80 Intake and Output 01/01/19 01/02/19 19:00 07:00 Intake Total 475 ml 360 ml Output Total 600 ml 150 ml Balance -125 ml 210 ml Intake Oral 400 ml 60 ml IV Total 75 ml 300 ml Output Urine Total 600 ml 150 ml # Bowel Movements 1 Laboratory Tests 01/02/19 04:10: White Blood Count 6.3, Red Blood Count 4.95, Hemoglobin 15.4, Hematocrit 43.6, Mean Corpuscular Volume 88, Mean Corpuscular Hemoglobin 31.2H, Mean Corpuscular Hemoglobin Concent 35.4, Red Cell Distribution Width 11.6, Platelet Count 182, Mean Platelet Volume 6.5, Neutrophils (%) (Auto) 71.7, Lymphocytes (%) (Auto) 16.3L, Monocytes (%) (Auto) 6.4, Eosinophils (%) (Auto) 4.6H, Basophils (%) ( Auto) 1.0, Troponin I 0.000 Height (Feet): 5 Height (Inches): 1.00 Weight (Pounds): 161 Cardiovascular: normal rate Respiratory/Chest: lungs clear Edema: no edema noted Generalized Jesse Aponte MD Jan 02, 2019 16:47
--- NOTE | 2019-01-02 19:11 | NUR ---
HAND-OFF: Report given to PRASANNA FORD, NO DISTRESS AT THIS TIME..
--- NOTE | 2019-01-02 19:12 | NUR ---
NURSE NOTES: Received patient from Janet Valdez RN. patient is observed resting in bed, AO X4, denies pain at this time. no s/sx of respiratory distress noted at this time. skin alterations noted. Purewick is patent and intact, draining well. IV site is patent and intact, running fluids TKO. bed in lowest position and locked, siderails up X3, call light within reach. will continue to monitor.
--- NOTE | 2019-01-02 19:23 | Cardiology Progress Note ---
Assessment/Plan Assessment/Plan [id number] Objective Last 24 Hour Vital Signs Date Time Temp Pulse Resp B/P (MAP) Pulse Ox O2 Delivery O2 Flow Rate FiO2 01/02/19 17:53 80 129/76 01/02/19 16:00 97.4 78 20 129/76 (93) 95 01/02/19 16:00 80 01/02/19 12:00 71 01/02/19 12:00 97.8 71 18 152/91 (111) 97 01/02/19 09:00 Room Air 01/02/19 08:38 70 144/92 01/02/19 08:37 70 144/92 01/02/19 08:00 97.5 70 18 144/92 (109) 95 01/02/19 08:00 69 01/02/19 04:11 59 01/02/19 04:00 98.1 71 16 127/71 (89) 95 01/02/19 00:00 96.8 62 21 132/83 (99) 96 01/01/19 23:44 60 01/01/19 22:47 61 01/01/19 21:00 Room Air 01/01/19 20:00 97.4 62 20 139/77 (97) 94 Intake and Output 01/01/19 01/02/19 19:00 07:00 Intake Total 475 ml 360 ml Output Total 600 ml 150 ml Balance -125 ml 210 ml Intake Oral 400 ml 60 ml IV Total 75 ml 300 ml Output Urine Total 600 ml 150 ml # Bowel Movements 1 Laboratory Tests Test 01/02/19 04:10 White Blood Count 6.3 K/UL (4.8-10.8) Red Blood Count 4.95 M/UL (4.20-5.40) Hemoglobin 15.4 G/DL (12.0-16.0) Hematocrit 43.6 % (37.0-47.0) Mean Corpuscular Volume 88 FL (80-99) Mean Corpuscular Hemoglobin 31.2 PG (27.0-31.0) H Mean Corpuscular Hemoglobin Concent 35.4 G/DL (32.0-36.0) Red Cell Distribution Width 11.6 % (11.6-14.8) Platelet Count 182 K/UL (150-450) Mean Platelet Volume 6.5 FL (6.5-10.1) Neutrophils (%) (Auto) 71.7 % (45.0-75.0) Lymphocytes (%) (Auto) 16.3 % (20.0-45.0) L Monocytes (%) (Auto) 6.4 % (1.0-10.0) Eosinophils (%) (Auto) 4.6 % (0.0-3.0) H Basophils (%) (Auto) 1.0 % (0.0-2.0) Troponin I 0.000 ng/mL (0.000-0.056) Robin Vega MD Jan 02, 2019 19:23
--- NOTE | 2019-01-02 19:53 | Cardiology Report ---
APPROVED REPORT EKG Measurement Heart [id number] VT 226P43 [id number] Sinus rhythm with 1st degree AV block Septal infarct, age undetermined Abnormal ECG
[2019-01-02 20:00] VITALS: BP 149/79
[2019-01-02] MEDS: Atorvastatin 80mg tab ORAL SCH (20:26)
--- NOTE | 2019-01-02 22:15 | Consultation ---
DATE OF CONSULTATION: 01/02/2019 CARDIOLOGY CONSULTATION CONSULTING PHYSICIAN: Robin Vega M.D. REFERRING PHYSICIAN: Jesse Aponte M.D. REASON FOR REFERRAL: Chest pain. HISTORY OF PRESENT ILLNESS: This is an elderly female, who was admitted to the hospital yesterday because of symptoms of left-sided weakness and has been diagnosed with a stroke. The patient experienced some pain in the chest that she described as heaviness on the left side overnight. Last night was transferred to the telemetry unit and today I was asked to see her in cardiac consultation for this atypical chest pain. The pain was persistent, but she no longer has the pain persisting until this morning. There was no relieving or exacerbating factors noted by the patient, mainly no change with taking a deep breath, coughing, twisting, turning, moving the arms, swallowing, sitting up, laying down, eating, or with any kind of inspiration. The patient unfortunately not ambulatory at the present time. PAST MEDICAL HISTORY: Positive for high blood pressure. It is very difficult to control until this hospitalization she states. She has had 2 prior strokes back in 2016, but she recovered from them apparently. There is no history of heart attack. No cancer. No hepatitis or tuberculosis. No asthma or emphysema. No ulcers. No kidney problems, liver problems. She does have hypothyroidism. No anemia, arthritis, HIV, AIDS, or any blood clots. ALLERGIES: She is intolerant to multiple medications. She lists hydrochlorothiazide as an allergy as it caused her to have abdominal pain. SOCIAL HISTORY: She never smoked. Does drink two alcoholic beverages per day. No drug use. 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 REVIEW OF SYSTEMS: GASTROINTESTINAL: Negative. GENITOURINARY: Negative. PULMONARY: She has some occasional coughing. CONSTITUTIONAL: Negative. NEUROLOGIC: Left-sided weakness. PHYSICAL EXAMINATION: GENERAL: Shows to be elderly female, in no respiratory distress. Left facial droop was noted. NECK: Supple. No jugular venous distention. LUNGS: Clear to auscultation and percussion. CARDIAC: S1 is normal. S2 is normal. Regular rate and rhythm. No heaves, thrills, or gallops noted. ABDOMEN: Soft, nontender. Positive bowel sounds. EXTREMITIES: There is no clubbing, cyanosis, or edema. She is able to move the lower extremities both, but the upper extremities appears to be somewhat weak. Her facial droop is noted on the left side. LABORATORY AND DIAGNOSTIC DATA: EKG showed normal sinus rhythm, leftward axis, delay in R-wave progression. Telemetry showed sinus, there is no atrial fibrillation or any other atrial arrhythmias noted. White count of 6.3, hemoglobin of 15.4, and platelet count of 182. Of note, the patient's hemoglobin yesterday was 19.6. Her sodium was 142, potassium 3.9, chloride 109, bicarb 22, BUN 26, creatinine 0.8, glucose of 137. A1c of 5.3. Troponin was negative on two separate occasions. TSH of 8.976. ProBNP is only 84, INR 1, and PTT of 25. Urinalysis is fairly unremarkable. RPR is pending. IMAGING: CT scan of the head that was performed yesterday showed subacute versus old infarcts in the right periventricular region measuring 2 to 3 x 0.9 cm. Chronic small vessel ischemic changes were noted. MRI of the brain was performed showing right turner radiata abnormality noted on CT scan consistent with a subacute infarction. Negative for acute intracranial bleed or mass effect. Multiple old infarctions noted as above. Carotid duplex study showed no significant plaque within the right and left external carotid arteries being documented. ASSESSMENT AND PLAN: 1. Stroke with subacute presentation. 2. History of hypertension. 3. Polycythemia. 4. Probable volume depletion. Dr. Aponte, this patient was seen in cardiac consultation. The patient's late presentation for neurological events with subacute findings noted on the CT scan and MRI. Her electrocardiogram is unremarkable. Her blood pressure appeared to be relatively well controlled at the present time and judging from the fact that she was polycythemic at the time of presentation and the decrease in the hemoglobin or hemoconcentration secondary to volume depletion as a possibility. Nevertheless, the episode of chest pain that she had the last night showed no evidence of myonecrosis. No EKG abnormalities on a significant degree to be suggestive of an acute myocardial infarction. Despite the fact that the pain lasted overnight rather atypical. An echocardiogram will be ordered for evaluation. Repeat set of cardiac enzymes will be ordered for tomorrow morning as well. The patient is getting treated for underlying stroke the therapy of which may be adequate for any underlying coronary disease should she have had one as well. Robin Vega M.D. DR: LESTER JOB#: [id number] CC:
[2019-01-03] VITALS: BP 161/92
--- NOTE | 2019-01-03 00:07 | NUR ---
NURSE NOTES: patient's BP readings are elevated. will inform MD. patient is in stable condition at this time, denies pain.
--- NOTE | 2019-01-03 00:10 | NUR ---
NURSE NOTES: left message for MD regarding patient's BP readings. awaiting call back.
[2019-01-03 04:00] VITALS: BP 160/85
[2019-01-03] MEDS: Levothyroxine 125mcg tab ORAL SCH ×2 (06:17→06:41)
--- NOTE | 2019-01-03 06:18 | NUR ---
TRANSFER TO FLOOR: Patient transferred to . Report given to LOGAN Vance. Belongings and medications reviewed and remain at patient's bedside. patient is in stable condition.
--- NOTE | 2019-01-03 06:19 | NUR ---
NURSE NOTES: Report received from LOGAN Saldivar. Patient was transferred from SDU to telemetry unit without any incident. Patient is asleep, lying in semi schilling's; resting comfortably. No signs of acute cardiorespiratory distress noted. Checked IV site intact and patent. No erythema, bleeding or infiltration noted. Belongings list checked with transferring RN. Bed at lowest position, brakes on, siderailsx 3. Call light within reach. Comfort care provided. Will continue plan of care.
[2019-01-03] MEDS ORDERED: Morphine Sulfate 2mg/ml Inj(IV/IM USE ONLY) IVP PRN (07:00)
[2019-01-03] MEDS ORDERED: Morphine Sulfate 4mg/ml Inj (IV USE ONLY) IVP PRN (07:00)
--- NOTE | 2019-01-03 07:15 | NUR ---
HAND-OFF: Report given to LOGAN Huang. Addendum: 01/03/19 at 0739 by Karin Alonso RN Plan of care endorsed.
--- NOTE | 2019-01-03 07:44 | NUR ---
NURSE NOTES: Received report from LOGAN Vance. The patient is resting on the bed without acute distress or shortness of breath. The patient's bed in the lowest position, call light in reach, and fall and aspiration precaution reinforced. The patient's IV site on R FA 20G intact and patent. Dr. Aponte and Dr. Ivey was notified regarding head CT and Brain MRI result. Will continue plan of care.
[2019-01-03 08:00] VITALS: BP 148/88
[2019-01-03] MEDS: Excedrin Migraine tab ORAL PRN (08:48)
[2019-01-03] MEDS: Metoprolol Succinate XL 25mg tab ORAL SCH (08:48)
[2019-01-03] MEDS: Heparin 5000 units/ml inj SUBQ SCH ×2 (08:49→20:29)
--- NOTE | 2019-01-03 10:59 | Cardiology Report ---
APPROVED REPORT EKG Measurement Heart [id number] MT 210P56 [id number] Sinus bradycardia with 1st degree AV block Otherwise normal ECG
--- NOTE | 2019-01-03 11:07 | Cardiology Report ---
APPROVED REPORT EKG Measurement Heart [id number] DE 194P70 [id number] Normal sinus rhythm Possible Left atrial enlargement Septal infarct, age undetermined Abnormal ECG
--- NOTE | 2019-01-03 11:42 | Cardiology Report ---
APPROVED REPORT EXAM: Two-dimensional and M-mode echocardiogram with Doppler and color Doppler. INDICATION CVA/TIA M-Mode DIMENSIONS IVSd1.2 (0.7-1.1cm)Left Atrium (MM)3.6 (1.6-4.0cm) LVDd5.0 (3.5-5.6cm)Aortic Root2.8 (2.0-3.7cm) PWd1.0 (0.7-1.1cm)Aortic Cusp Exc.1.6 (1.5-2.0cm) LVDs3.4 (2.5-4.0cm) PWs1.2 cm Technically difficult study due to poor acoustical windows. Normal left ventricular chamber size, systolic function and wall motion to extent visualized. Left ventricular ejection fraction estimated to be 60-65 %. No evidence of left ventricular hypertrophy. No evidence of pericardial effusion. All other cardiac chamber sizes are within normal limits. Focal aortic valve sclerosis with adequate cusp excursion. Thickened mitral valve leaflets with normal excursion. Mitral annulus and aortic root calcification. Pulmonic valve not well visualized. Normal tricuspid valve structure. IVC at normal size with physiologic collapse. A color flow and spectral Doppler study was performed and revealed: Mild aortic regurgitation. Trace mitral regurgitation. Mitral diastolic velocities suggest reduced left ventricular relaxation c/w mild LV diastolic dysfunction (Grade I). Trace tricuspid regurgitation. Tricuspid systolic velocities suggests peak right ventricular systolic pressure of 28 mmHg. No pulmonic regurgitation present.
[2019-01-03 12:00] VITALS: BP 134/89
--- NOTE | 2019-01-03 12:00 | NUR ---
NURSE NOTES: The patient is stable without acute distress or shortness of breath. Will continue to monitor the patient.
--- NOTE | 2019-01-03 13:00 | NUR ---
P.T Note: Pt seen for P.T session . Tx consisted of thera ex's, balance training, ADL/functional mobility training and gait training. Pt tolerated P.T session well. please refer to care activity under P.T . No major c/o pain except soreness on the posterior cervical, lower back and R hip. Pt is highly motivated to get stronger for return to PLOF. P.T strongly recommend ARU VS SNF for intensive therapy at [place].
--- NOTE | 2019-01-03 14:24 | Cardiology Progress Note ---
Assessment/Plan Assessment/Plan 1. Stroke with subacute presentation. 2. History of hypertension. 3. Polycythemia. 4. Probable volume depletion. bp seem ok echo does not show any sig LVH despite reported sig uncontrolled htn ! will orer plasma metanephrines i have explained to the pt need fu to see about those result, she understood the importance and agreed to proposed fu, as she may be goign to aru and not immediately available post dc from here need continueed PT an OT and aru eventually Subjective Cardiovascular: Denies: chest pain, lightheadedness, palpitations Respiratory: Denies: shortness of breath Gastrointestinal/Abdominal: Denies: abdominal pain Genitourinary: Denies: burning Subjective post neck pain due to lying postion Objective Last 24 Hour Vital Signs Date Time Temp Pulse Resp B/P (MAP) Pulse Ox O2 Delivery O2 Flow Rate FiO2 01/03/19 12:00 72 01/03/19 12:00 98.9 79 20 134/89 (104) 96 01/03/19 09:00 Room Air 01/03/19 08:48 77 148/88 01/03/19 08:47 77 148/88 01/03/19 08:00 97.5 77 20 148/88 (108) 97 01/03/19 08:00 69 01/03/19 04:02 69 01/03/19 04:00 98.2 71 20 160/85 (110) 95 01/03/19 00:00 98.0 72 20 161/92 (115) 95 01/03/19 00:00 72 01/02/19 20:00 Room Air 01/02/19 20:00 70 01/02/19 20:00 97.7 74 20 149/79 (102) 96 01/02/19 17:53 80 129/76 01/02/19 16:00 97.4 78 20 129/76 (93) 95 01/02/19 16:00 80 General Appearance: no apparent distress, alert Neck: normal alignment Cardiovascular: normal rate Respiratory/Chest: chest wall non-tender, lungs clear Abdomen: normal bowel sounds, non tender, soft Extremities: no swelling Intake and Output 01/02/19 01/03/19 19:00 07:00 Intake Total 655 ml 60 ml Output Total 1000 ml 900 ml Balance -345 ml -840 ml Intake Oral 280 ml 60 ml IV Total 375 ml Output Urine Total 1000 ml 900 ml # Bowel Movements 2 1 Laboratory Tests Test 01/03/19 02:50 Troponin I 0.000 ng/mL (0.000-0.056) Microbiology Date/Time Source Procedure Growth Status 01/01/19 04:40 Nasal Nares MRSA Culture - Final NO METHICILLIN RESISTANT STAPH AUREUS... Complete 01/01/19 04:40 Rectum VRE Culture - Final NO VANCOMYCIN RESISTANT ENTEROCOCCUS ... Complete 01/01/19 04:40 Rectum - Final NO CARBAPENEM-RESISTANT ENTEROBACTERI... Complete Robin Vega MD Jan 03, 2019 14:24
--- NOTE | 2019-01-03 15:38 | NUR ---
SPEECH PATHOLOGY: S: PATIENT CLEARED FOR ST INTERVENTION BY LOGAN WATERMAN. PATIENT ALERT, VERBAL COOPERATIVE O: DYSPHAGIA MANAGEMENT/NEUROMUSCULAR TASKS A: PATIENT TOLERATING CURRENT MODIFIED TEXTURE DIET WITH NO OVERT S/S OF ASPIRATION "I HAVE TO HAVE PROTEIN, PLEASE GET ME A LICENSED PSYCHOLOGIST DIRECTOR CONSULT" 5 SETS OF NEUROMUSCULAR EXERCISES TO ADDRESS WEAKNESS/ROM/ COORDINATION IN FACIAL/LABIAL MUSCULATURE ON AFFECTED SIDE. PATIENT PROVIDED RETURN DEMONSTRATION FOR ROMA STRETCHES NOTED INCREASE IN BUCCAL TONE/ROM POST INTERVENTION ENCOURAGED PATIENT TO CONTINUE EXERCISES HOURLY THROUGHOUT THE DAY SHE CONCURRED. P: CONTINUE PER PLAN. CALL RD FOR CONSULT RE: FOOD CHOICES FOR PT.
--- NOTE | 2019-01-03 15:40 | General Progress Note ---
Assessment/Plan Problem List: (1) HTN (hypertension) ICD Codes: I10 - Essential (primary) hypertension SNOMED: 46126702 (2) Chest pain ICD Codes: R07.9 - Chest pain, unspecified SNOMED: 94853454 (3) CVA (cerebral infarction) ICD Codes: I63.9 - Cerebral infarction, unspecified SNOMED: 718664977 Assessment/Plan: carotid doppler was neg discussed with radiology reg MRI results PT watch BP cardiology F/U Subjective Allergies: Coded Allergies: No Known Allergies (Unverified , 01/01/19) Subjective feels ok Objective Last 24 Hour Vital Signs Date Time Temp Pulse Resp B/P (MAP) Pulse Ox O2 Delivery O2 Flow Rate FiO2 01/03/19 12:00 72 01/03/19 12:00 98.9 79 20 134/89 (104) 96 01/03/19 09:00 Room Air 01/03/19 08:48 77 148/88 01/03/19 08:47 77 148/88 01/03/19 08:00 97.5 77 20 148/88 (108) 97 01/03/19 08:00 69 01/03/19 04:02 69 01/03/19 04:00 98.2 71 20 160/85 (110) 95 01/03/19 00:00 98.0 72 20 161/92 (115) 95 01/03/19 00:00 72 01/02/19 20:00 Room Air 01/02/19 20:00 70 01/02/19 20:00 97.7 74 20 149/79 (102) 96 01/02/19 17:53 80 129/76 01/02/19 16:00 97.4 78 20 129/76 (93) 95 01/02/19 16:00 80 Intake and Output 01/02/19 01/03/19 19:00 07:00 Intake Total 655 ml 60 ml Output Total 1000 ml 900 ml Balance -345 ml -840 ml Intake Oral 280 ml 60 ml IV Total 375 ml Output Urine Total 1000 ml 900 ml # Bowel Movements 2 1 Laboratory Tests 01/03/19 02:50: Troponin I 0.000 Height (Feet): 5 Height (Inches): 1.00 Weight (Pounds): 161 Cardiovascular: normal rate Respiratory/Chest: lungs clear Jesse Aponte MD Jan 03, 2019 15:40
[2019-01-03 16:00] VITALS: BP 147/96
--- NOTE | 2019-01-03 18:34 | Neurology Progress Note ---
Interim History Interim History Interim History Ms. Rene feels significantly better. The strength on the left side is better. She feels that her speech is clearer. She sat, stood and did some walking with her PT today. She has not noticed any new neurologic symptoms. Review of Systems Neuro Review of Systems Benign. Objective Physical Exam Last Vital Signs Date Time Temp Pulse Resp B/P (MAP) Pulse Ox O2 Delivery O2 Flow Rate FiO2 01/03/19 17:20 71 147/96 01/03/19 16:00 97.2 20 96 01/03/19 09:00 Room Air Laboratory Tests Test 01/03/19 02:50 Troponin I 0.000 ng/mL (0.000-0.056) Neurologic Exam Objective PHYSICAL EXAMINATION: GENERAL: She is a well-developed, well-nourished, pleasant lady, lying in bed, in no acute distress. HEAD: Normocephalic and atraumatic. NECK: No neck rigidity was observed. EENT: Benign. NEUROLOGICAL EXAMINATION: MENTAL STATUS EXAMINATION: She was awake and alert. She was oriented to person, place, and time. She was able to recall 3/3 words immediately after 1 minute and after 3 minutes. She was able to remember presidents Trump through [place]. Her mathematical skills were good. Her visuospatial function was preserved. SPEECH: She had a mild labial dysarthria. LANGUAGE: She had no aphasia. CRANIAL NERVE EXAMINATION: II: The visual ruiz were intact on confrontation testing. III, IV & : The external ocular movements were full and the pupils 3 mm in diameter and reactive sluggishly to light. V: She had normal facial sensations and the temporales, masseters, and pterygoids functioned normally. VII: Her left seventh central facial paresis was better. VIII: She was able to hear well bilaterally and had no nystagmus. IX: The palate moved symmetrically on phonation. X: She had no hoarseness of voice. XI: Sternocleidomastoids and trapezii functioned normally. XII: The tongue was in the midline without any fasciculations or atrophy. MOTOR SYSTEM: The tone was normal on the right side and minimally spastic on the left side. Examination of muscle mass revealed no focal wasting. Examination of power revealed G 5/5 power on the right side. On the left side, she had G 3+/5 in the deltoid, G 4/5 in the biceps, triceps, finger extensors, and wrist extensors, G 4+/5 in the finger flexors and wrist flexors, G 3/5 in the iliopsoas, ankle dorsiflexors, and toe extensors, G 5/5 in the quadriceps, G 4+/5 in the hamstrings, G 4+/5 in the ankle plantar flexors and toe flexors. SENSORY EXAMINATION: She had intact sensations to pinprick, light touch, and graphesthesia. REFLEXES: 1+ on the right and 1++ on the left at the biceps, triceps, brachioradialis, and knees, 0 at both ankles. The plantar response was extensor on the left and flexor on the right. COORDINATION: Sjlfay-te-cgnz and faxp-xh-sjzc testing were performed well on the right side, but could not be performed on the left side. STANCE: Deferred. GAIT: Deferred. Impression/Recommendations Diagnostic Impression 1. Ms. Guido Rene is an 78-year-old, right-handed, lady, who does have a past history of hypothyroidism, hypertension, stroke like symptoms with some lower extremity weakness two years ago, and then the sudden onset of slurring of speech and left-sided weakness on December 19, 2018. 2. She was flown into [place] on 12/31/2018 from [place] for continued left- sided weakness and slurring of speech. 3. She feels significantly better. The strength on the left side is better. She feels that her speech is clearer. She sat, stood and did some walking with her PT today. She has not noticed any new neurologic symptoms. 4. On neurological examination, at this time, she does demonstrate problems with memory, dysarthria, an improved left seventh central facial paresis, and an improved left upper greater than lower extremity hemiparesis. The sensory examination is benign. The deep tendon reflexes are slightly brisker on the left side compared to the right. The ankle jerks are absent and the plantar response is extensor on the left and flexor on the right. She is unable to perform vfqujf-kb-[id number] and uvjy-ni-dvvq testing on the left side. 5. The CT scan of the brain without contrast performed on 12/31/2018 revealed a subacute infarct in the deep white matter on the right side. 6. The MRI of the brain done on 01/02/19 revealed a recent right turner radiata infarct and older lacunar infarcts in the left thalamus, right utrner radiata and right cerebellum. 7. The Carotid duplex revealed no ICA stenosis. 8. Laboratory data on my initial evaluation revealed hemoglobin elevated at 19.6 G with a normal WBC count and normal platelet count. The chemistry panel revealed a chloride elevated at 109, BUN elevated at 26, and glucose elevated at 137. 9. The urinalysis revealed 1+ leukocyte esterase with 0-2 red blood cells and white blood cells per high-power field. 10. Further laboratory tests have revealed that the Hb has dropped to 15.4 G and the TSH is elevated at 8.9. 11. The patient's history, neurological examination, laboratory data, and imaging studies are most consistent with a right brain turner radiata infarct with dysarthria and hemiparesis on the left side. The most likely etiology for the patient's stroke would be small vessel cerebrovascular disease related to high blood pressure and possibly dyslipidemia. Recommendations 1. Continue present management. 2. The patient's blood pressure should be controlled and brought down into physiological range that is < 120/80 mm. 3. The patient's dyslipidemia should be controlled with Lipitor. 4. Plavix 75 mg for secondary stroke prevention benefits. 5. Physical, occupational, and speech and language therapy should be started. 6. Acute rehabilitation. Víctor Ivey M.D., M.S.P.H. Víctor Ivey MD Jan 03, 2019 18:34
--- NOTE | 2019-01-03 19:26 | NUR ---
HAND-OFF: Report given to LOGAN Wilson. The patient is resting on the bed without acute distress or shortness of breath. The patient's bed in the lowest position, call light in reach, and fall and aspiration precaution reinforced. IV site intact and patnet. Endorsed plan of care.
--- NOTE | 2019-01-03 19:50 | NUR ---
NURSE NOTES: RECEIVED PATIENT RESTING IN BED, NO COMPLAINTS OF CHEST PAIN AT THIS TIME. FALL AND ASPIRATION PRECAUTIONS IN PLACE: CALL LIGHT AND BEDSIDE TABLE WITHIN REACH, BED IN LOW POSITION AND BED ALARM ON, HOB ELEVATED. PLAN OF CARE REVIEWED.
[2019-01-03 20:00] VITALS: BP 134/97
[2019-01-03] MEDS: Atorvastatin 80mg tab ORAL SCH (20:27)
[2019-01-04] VITALS: BP 144/90
[2019-01-04 04:00] VITALS: BP 166/94
[2019-01-04] MEDS: Levothyroxine 125mcg tab ORAL SCH (05:58)
--- NOTE | 2019-01-04 07:27 | NUR ---
NURSE NOTES: Received report from LOGAN Wilson. The patient is resting on the bed without acute distress or shortness of breath. The patient's bed in the lowest position, call light in reach, and fall and aspiration precaution reinforced. IV site on R FA 20G is intact and patent. Will continue plan of care.
--- NOTE | 2019-01-04 07:31 | NUR ---
HAND-OFF: Report given to Sherman DIAZ RN. PATIENT RESTING IN BED, NO SIGNS OF DISTRESS NOTED.
[2019-01-04 08:00] VITALS: BP 153/96
[2019-01-04] MEDS: Metoprolol Succinate XL 25mg tab ORAL SCH (08:55)
[2019-01-04] MEDS: Heparin 5000 units/ml inj SUBQ SCH ×2 (08:57→20:07)
--- NOTE | 2019-01-04 10:17 | NUR ---
CASE MANAGEMENT:REVIEW 01/04/19 SI: CVA. CHEST PAIN. HTN 97.5 76 18 153/96 95% ON RA IS: ASA PO QD LIPITOR PO QHS NORVASC PO BID PLAVIX PO QD TOPROL XL PO QD SYNTHROID PO QD : TELEMETRY STATUS DCP: ARU
--- NOTE | 2019-01-04 10:27 | NUR ---
DISCHARGE PLANNING PATIENT HAS BEEN REFERRED TO AND ACCEPTED AT [facility] T: [phone] F: [phone] DR DE LA GARZA HAS BEEN UPDATED....WAITING FOR OFFICIAL DISCHARGE ORDER
--- NOTE | 2019-01-04 11:31 | NUR ---
SPEECH PATHOLOGY: S: PATIENT CLEARED FOR ST INTERVENTION BY LOGAN WATERMAN. PATIENT ALERT, VERBAL COOPERATIVE O: DYSPHAGIA MANAGEMENT/NEUROMUSCULAR TASKS A: PATIENT TOLERATING CURRENT MODIFIED TEXTURE DIET WITH NO OVERT S/S OF ASPIRATION PATIENT TRIALED WITH SOFT CHEWABLE SOLID AND THIN LIQUIDS NO POCKETING IN LEFT/AFFECTED SIDE SULCUS FUNCTIONAL OROPHARYNGEAL PHASE OF SWALLOW FOR THIN LIQUIDS P: ADVANCE DIET TEXTURE TO MECHANICAL SOFT WITH THIN LIQUIDS CONTINUE PER PLAN.
[2019-01-04 12:00] VITALS: BP 139/91
[2019-01-04] MEDS ORDERED: PLAVIX75 MG ORAL (12:41)
[2019-01-04] MEDS ORDERED: SYNTHROID50 MCG ORAL (12:49)
--- NOTE | 2019-01-04 13:01 | General Progress Note ---
Assessment/Plan Problem List: (1) HTN (hypertension) ICD Codes: I10 - Essential (primary) hypertension SNOMED: 54862991 (2) Chest pain ICD Codes: R07.9 - Chest pain, unspecified SNOMED: 40515268 (3) CVA (cerebral infarction) ICD Codes: I63.9 - Cerebral infarction, unspecified SNOMED: 798531154 Assessment/Plan: Dc to [facility] today Discussed with step son on the phone for 25 min Subjective Allergies: Coded Allergies: No Known Allergies (Unverified , 01/01/19) Subjective feels ok Objective Last 24 Hour Vital Signs Date Time Temp Pulse Resp B/P (MAP) Pulse Ox O2 Delivery O2 Flow Rate FiO2 01/04/19 12:00 97.7 78 18 139/91 (107) 97 01/04/19 09:00 Room Air 01/04/19 08:55 76 153/96 01/04/19 08:55 76 153/96 01/04/19 08:00 97.5 76 18 153/96 (115) 95 01/04/19 08:00 76 01/04/19 04:00 63 01/04/19 04:00 97.0 65 18 166/94 (118) 95 01/04/19 00:00 97.2 64 18 144/90 (108) 93 01/04/19 00:00 69 01/03/19 21:00 Room Air 01/03/19 20:00 82 01/03/19 20:00 97.0 72 18 134/97 (109) 94 01/03/19 17:20 71 147/96 01/03/19 16:00 97.2 65 20 147/96 (113) 96 01/03/19 16:00 71 Intake and Output 01/03/19 01/04/19 19:00 07:00 Intake Total 420 ml 120 ml Output Total 900 ml 750 ml Balance -480 ml -630 ml Intake Oral 420 ml 120 ml Output Urine Total 900 ml 750 ml Height (Feet): 5 Height (Inches): 1.00 Weight (Pounds): 157 Jesse Aponte MD Jan 04, 2019 13:01
--- NOTE | 2019-01-04 13:50 | NUR ---
NURSE NOTES: Informed Hal, step son, regarding the patient's safe discharge [facility] [place]. Awaiting for room number and EMS arrival time frame from case operator. The patient admitted with ischemic stroke and the patient has been managed with Plavix but no tPA therapy per Dr. Ivey and Dr. Aponte's order. The patient denies of acute distress or shortness of breath. Will continue plan of care until EMS arrives.
[2019-01-04 16:00] VITALS: BP 149/94
--- NOTE | 2019-01-04 16:10 | NUR ---
NURSE NOTES: Per Rosa, case management assistant, the bed is not available at [facility]. Discharged postponed to 01/05/2019 per Rosa case management assistant. Informed to the patient and Hal, the step son.
--- NOTE | 2019-01-04 17:51 | Neurology Progress Note ---
Interim History Interim History Interim History Ms. Rene continues to feel significantly better. The strength on the left side is improving. She feels that her speech is clearer. She sat, stood and did more walking with her PT today. She has not noticed any new neurologic symptoms. She has been accepted for acute rehabilitation at [facility]. Review of Systems Neuro Review of Systems Benign. Objective Physical Exam Last Vital Signs Date Time Temp Pulse Resp B/P (MAP) Pulse Ox O2 Delivery O2 Flow Rate FiO2 01/04/19 17:20 80 149/94 01/04/19 16:00 97.2 18 95 01/04/19 09:00 Room Air Neurologic Exam Objective PHYSICAL EXAMINATION: GENERAL: She is a well-developed, well-nourished, pleasant lady, lying in bed, in no acute distress. HEAD: Normocephalic and atraumatic. NECK: No neck rigidity was observed. EENT: Benign. NEUROLOGICAL EXAMINATION: MENTAL STATUS EXAMINATION: She was awake and alert. She was oriented to person, place, and time. She was able to recall 3/3 words immediately after 1 minute and after 3 minutes. She was able to remember presidents Trump through [place]. Her mathematical skills were good. Her visuospatial function was preserved. SPEECH: She had a mild labial dysarthria. LANGUAGE: She had no aphasia. CRANIAL NERVE EXAMINATION: II: The visual ruiz were intact on confrontation testing. III, IV & : The external ocular movements were full and the pupils 3 mm in diameter and reactive sluggishly to light. V: She had normal facial sensations and the temporales, masseters, and pterygoids functioned normally. VII: Her left seventh central facial paresis was better. VIII: She was able to hear well bilaterally and had no nystagmus. IX: The palate moved symmetrically on phonation. X: She had no hoarseness of voice. XI: Sternocleidomastoids and trapezii functioned normally. XII: The tongue was in the midline without any fasciculations or atrophy. MOTOR SYSTEM: The tone was normal on the right side and minimally spastic on the left side. Examination of muscle mass revealed no focal wasting. Examination of power revealed G 5/5 power on the right side. On the left side, she had G 4/5 in the deltoid, G 4+/5 in the biceps, triceps, finger extensors, and wrist extensors, G 4++/5 in the finger flexors and wrist flexors, G 3/5 in the iliopsoas, G 4-/5 in the ankle dorsiflexors, and toe extensors, G 5/5 in the quadriceps, G 4+/5 in the hamstrings, G 4+/5 in the ankle plantar flexors and toe flexors. SENSORY EXAMINATION: She had intact sensations to pinprick, light touch, and graphesthesia. REFLEXES: 1+ on the right and 1++ on the left at the biceps, triceps, brachioradialis, and knees, 0 at both ankles. The plantar response was extensor on the left and flexor on the right. COORDINATION: Hypwop-yy-ufva and bkmn-tp-zypo testing were performed well on the right side, but could not be performed on the left side. STANCE: Deferred. GAIT: Deferred. Impression/Recommendations Diagnostic Impression 1. Ms. Guido Rene is an 78-year-old, right-handed, lady, who does have a past history of hypothyroidism, hypertension, stroke like symptoms with some lower extremity weakness two years ago, and then the sudden onset of slurring of speech and left-sided weakness on December 19, 2018. 2. She was flown into [place] on 12/31/2018 from [place] for continued left- sided weakness and slurring of speech. 3. She continues to feel significantly better. The strength on the left side is improving. She feels that her speech is clearer. She sat, stood and did more walking with her PT today. She has not noticed any new neurologic symptoms. She has been accepted for acute rehabilitation at [facility]. 4. On neurological examination, at this time, she does demonstrate problems with memory, dysarthria, an improved left seventh central facial paresis, and an improved left upper greater than lower extremity hemiparesis. The sensory examination is benign. The deep tendon reflexes are slightly brisker on the left side compared to the right. The ankle jerks are absent and the plantar response is extensor on the left and flexor on the right. She is unable to perform tfejin-zj-xgqz and ukmu-kc-ldkb testing on the left side. 5. The CT scan of the brain without contrast performed on 12/31/2018 revealed a subacute infarct in the deep white matter on the right side. 6. The MRI of the brain done on 01/02/19 revealed a recent right turner radiata infarct and older lacunar infarcts in the left thalamus, right turner radiata and right cerebellum. 7. The Carotid duplex revealed no ICA stenosis. 8. Laboratory data on my initial evaluation revealed hemoglobin elevated at 19.6 G with a normal WBC count and normal platelet count. The chemistry panel revealed a chloride elevated at 109, BUN elevated at 26, and glucose elevated at 137. 9. The urinalysis revealed 1+ leukocyte esterase with 0-2 red blood cells and white blood cells per high-power field. 10. Further laboratory tests have revealed that the Hb has dropped to 15.4 G and the TSH is elevated at 8.9. 11. The patient's history, neurological examination, laboratory data, and imaging studies are most consistent with a right brain turner radiata infarct with dysarthria and hemiparesis on the left side. The most likely etiology for the patient's stroke would be small vessel cerebrovascular disease related to high blood pressure and possibly dyslipidemia. Recommendations 1. Continue present management. 2. Keep blood pressure in physiological range that is < 120/80 mm. 3. The patient's dyslipidemia should be controlled with Lipitor. 4. Plavix 75 mg for secondary stroke prevention benefits. 5. Physical, occupational, and speech and language therapy should be started. 6. Acute rehabilitation as planned. 7. If discharged - follow up in office in ~ 2 months. Víctor Ivey M.D., M.S.P.H. Víctor Ivey MD Jan 04, 2019 17:51
--- NOTE | 2019-01-04 19:00 | Cardiology Progress Note ---
Assessment/Plan Assessment/Plan 1. Stroke with subacute presentation. 2. History of hypertension. 3. Polycythemia. 4. Probable volume depletion. bp is elevated she has multiple drug intoleraqnces but has beenon lisinopril precinct captain which she is nto gettign here will restart echo does not show any sig LVH despite reported sig uncontrolled htn ! will orer plasma metanephrines i have explained to the pt need fu to see about those result, she understood the importance and agreed to proposed fu, as she may be goign to [facility] and not immediately available post dc from here need continueed PT an OT and aru eventually to [facility] soon bp Subjective Cardiovascular: Denies: chest pain, lightheadedness Respiratory: Denies: shortness of breath Gastrointestinal/Abdominal: Denies: abdominal pain Genitourinary: Denies: burning Subjective post neck pain due to lying postion Objective Last 24 Hour Vital Signs Date Time Temp Pulse Resp B/P (MAP) Pulse Ox O2 Delivery O2 Flow Rate FiO2 01/04/19 17:20 80 149/94 01/04/19 16:00 97.2 80 18 149/94 (112) 95 01/04/19 16:00 76 01/04/19 12:00 97.7 78 18 139/91 (107) 97 01/04/19 12:00 78 01/04/19 09:00 Room Air 01/04/19 08:55 76 153/96 01/04/19 08:55 76 153/96 01/04/19 08:00 97.5 76 18 153/96 (115) 95 01/04/19 08:00 76 01/04/19 04:00 63 01/04/19 04:00 97.0 65 18 166/94 (118) 95 01/04/19 00:00 97.2 64 18 144/90 (108) 93 01/04/19 00:00 69 01/03/19 21:00 Room Air 01/03/19 20:00 82 01/03/19 20:00 97.0 72 18 134/97 (109) 94 General Appearance: no apparent distress, alert Neck: supple Cardiovascular: normal rate Respiratory/Chest: lungs clear Abdomen: non tender, soft Intake and Output 01/03/19 01/04/19 19:00 07:00 Intake Total 420 ml 120 ml Output Total 900 ml 750 ml Balance -480 ml -630 ml Intake Oral 420 ml 120 ml Output Urine Total 900 ml 750 ml Robin Vega MD Jan 04, 2019 19:00
--- NOTE | 2019-01-04 19:06 | NUR ---
HAND-OFF: Report given to LOGAN Sosa. The patient is resting on the bed without acute distress or shortness of breath. The patient's bed in the lowest position, call light in reach, and fall and aspiration precaution reinforced. IV site is intact and patent. Endorsed plan of care.
--- NOTE | 2019-01-04 19:27 | NUR ---
NURSE NOTES: Received report from Boris RN, pt. received in bed, pt. is awake in bed A/O x's4- able to make needs known, no signs or symptoms of acute cardiac or respiratory distress noted, bed in lowest position and call light within easy reach, bed alarm on, side rails up x's 3 and safety brakes engaged, pure wick intact and set to suction, pt. appears to be clean and dry, RFA 20G SL IV intact and patent, safety measures continued, will continue with plan of care.
[2019-01-04 20:00] VITALS: BP 147/89
[2019-01-04] MEDS: Excedrin Migraine tab ORAL PRN (20:05)
[2019-01-04] MEDS: Atorvastatin 80mg tab ORAL SCH (20:05)
[2019-01-04] MEDS: Lisinopril 20mg tab ORAL SCH (20:18)
[2019-01-05] VITALS: BP 132/77
[2019-01-05 04:00] VITALS: BP 140/79
[2019-01-05] MEDS: Levothyroxine 125mcg tab ORAL SCH (05:30)
--- NOTE | 2019-01-05 06:55 | NUR ---
HAND-OFF: Report given to Kayleen RN, pt. remains stable and no signs of distress noted.
--- NOTE | 2019-01-05 07:31 | NUR ---
NURSE NOTES: Received report from Josue Sosa. Pt is sitting up in bed waiting for breakfast. No distress noted. Bed is in lowest position, side rails up X2, and call light is within reach. Will continue to monitor.
[2019-01-05 08:00] VITALS: BP 121/77
[2019-01-05] MEDS: Excedrin Migraine tab ORAL PRN (09:24)
[2019-01-05] MEDS: Heparin 5000 units/ml inj SUBQ SCH (09:28)
[2019-01-05] MEDS: Metoprolol Succinate XL 25mg tab ORAL SCH (09:31)
[2019-01-05] MEDS: Lisinopril 20mg tab ORAL SCH (09:31)
--- NOTE | 2019-01-05 11:20 | NUR ---
DISCHARGE PLANNED PATIENT IS DISCHARGING TO [facility] [address] [facility] [address] T: [phone] FOR NURSE TO NURSE REPORT [facility] HAS BEEN ARRANGED FOR [address] OPERATOR MESSAGE LEFT FOR STEP SON , ONEL
--- NOTE | 2019-01-05 11:28 | NUR ---
SPEECH PATHOLOGY/DISCHARGE SUMMARY PER RN/PATIENT, PATIENT TO BE DISCHARGED TO [facility] TODAY SHE MET HER GOAL OF SAFE SUFFICIENT P.O. INTAKE WITH SOFT SOLIDS AND THIN LIQUIDS NURSING STAFF MET ASPIRATION PRECAUTIONS AND ORAL CARE GOALS D/C FROM [facility]ED [facility].
[2019-01-05 12:00] VITALS: BP 105/65
--- NOTE | 2019-01-05 12:10 | General Progress Note ---
Assessment/Plan Problem List: (1) HTN (hypertension) ICD Codes: I10 - Essential (primary) hypertension SNOMED: 23008085 (2) Chest pain ICD Codes: R07.9 - Chest pain, unspecified SNOMED: 47829057 (3) CVA (cerebral infarction) ICD Codes: I63.9 - Cerebral infarction, unspecified SNOMED: 058691986 Assessment/Plan: Dc to [facility] today Discussed with RN Subjective Allergies: Coded Allergies: No Known Allergies (Unverified , 01/01/19) Subjective feels ok Objective Last 24 Hour Vital Signs Date Time Temp Pulse Resp B/P (MAP) Pulse Ox O2 Delivery O2 Flow Rate FiO2 01/05/19 09:32 81 121/77 01/05/19 09:31 121/77 01/05/19 09:31 81 121/77 01/05/19 09:00 Room Air 01/05/19 08:00 98.8 81 18 121/77 (92) 95 01/05/19 04:00 98.2 87 18 140/79 (99) 98 01/05/19 04:00 59 01/05/19 00:00 98.8 115 18 132/77 (95) 98 01/05/19 00:00 66 01/04/19 21:04 97.2 01/04/19 21:00 Room Air 01/04/19 20:18 147/89 01/04/19 20:00 97.4 88 18 147/89 (108) 96 01/04/19 20:00 88 01/04/19 17:20 80 149/94 01/04/19 16:00 97.2 80 18 149/94 (112) 95 01/04/19 16:00 76 Intake and Output 01/04/19 01/05/19 18:59 06:59 Intake Total 1230 ml Output Total 700 ml 300 ml Balance 530 ml -300 ml Intake Oral 1230 ml Output Urine Total 700 ml 300 ml # Bowel Movements 1 1 Height (Feet): 5 Height (Inches): 1.00 Weight (Pounds): 157 Cardiovascular: normal rate Respiratory/Chest: lungs clear Jesse Aponte MD Jan 05, 2019 12:10
--- NOTE | 2019-01-05 13:04 | NUR ---
NURSE NOTES: Called [facility] Per Tyson, he will call me back. Tyson is aware of the ETA for ambulance.
--- NOTE | 2019-01-05 13:21 | NUR ---
NURSE NOTES: Report given to Tyson at [facility]
--- NOTE | 2019-01-05 15:05 | NUR ---
NURSE NOTES: Patient was discharged per MD orders. Heart monitor was removed and returned to MT. IV removed. No redness or swelling noted. belongings accounted for. Medication that was in pharmacy has been returned to pt. Pt stable at time of discharge.
--- NOTE | 2019-01-06 11:02 | Discharge Summary ---
Discharge Summary Discharge Summary _ DATE OF ADMISSION: 01/01/2019 DATE OF DISCHARGE: 01/05/2019 DISCHARGED BY: Dr. Aponte REASON FOR ADMISSION: 78 years old female, residing in [place], with past medical history of uncontrolled hypertension, recent CVA with left-sided weakness and left facial drop , diagnosed on 12/19/2018. Patient was hospitalized for CVA and subsequently was discharged home. Patient had a caregiver at home and physical therapy on a daily basis. However, patient was not getting better and her stepson took her to fly to [facility] and brought to emergency department. Upon evaluation vital signs revealed elevated blood pressure 160/98. Pulse oximetry was stable on room air. Laboratory work-up revealed no leukocytosis, hemoglobin 19.6. Stable platelet count. Stable electrolytes. BUN 26, creatinine 0.8. Stable LFT. Troponin negative. Pro BNP 84. EKG demonstrated normal sinus rhythm , no acute ischemic changes. Urinalysis revealed +2 protein, no evidence of UTI . CT of the head showed subacute versus old infarct in the right periventricular region. Chronic small vessel ischemic disease and age-related cerebral atrophy. Chest x-ray demonstrated linear airspace disease at the left lung base possibly representing atelectasis, scaring or pneumonia. No other acute findings. Patient subsequently admitted to telemetry floor for further management. CONSULTANTS: racing car driver Dr. Vega neurologist Dr. Ivey [facility] COU[facility]SE: Patient admitted to telemetry floor. Nuclear Physics Teacher and neurologist followed. Patient subsequently undergone MRI of the brain , which revealed positive area of interest diffusion restriction in the right carotid radiata, corresponding to abnormality described on recent CT scan and consistent with a subacute infarct. No acute intracranial bleeding or mass-effect. Multiple old infarcts. Other chronic and age-related changes were noted. Carotid Doppler was essentially negative. Per neurologist , patient's history, neurological examination, laboratory data and imaging studies were most consistent with right brain turner radiata infarct with dysarthria and hemiparesis on the left side. The most likely etiology of the patient's stroke was probably small vessel cerebrovascular disease related to high blood pressure and possibly dyslipidemia. Neurologist recommended to keep blood pressure in physiological range below 120/ 80 . Antiplatelet therapy with aspirin and Plavix provided. Statin continued. Patient was working with physical and speech therapists. Bedside swallow evaluation revealed evidence of dysphagia. Diet texture provided as per speech therapist recommendations with strict aspiration precaution. Patient was recommended to follow-up with neurologist as outpatient. Echocardiogram revealed preserved ejection fraction of 60 to 65% with no evidence of left ventricular hypertrophy. No evidence of pericardial effusion. Right ventricular systolic pressure 28. Serial troponin were negative. Blood pressure was managed with multiple antihypertensive medications, including BOONE inhibitor , calcium channel mirza and beta-mirza. Blood pressure stabilized. Patient stabilized and was ready for discharge to [facility] for further rehabilitation. 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 DISCHARGE INSTRUCTIONS: Patient was discharged [facility] at [facility] for rehabilitation. I have been assigned to dictate discharge summary for this account. I was not involved in the patient's management. Manuela Benton NP Jan 06, 2019 11:02
== END 2019-01-05 14:59 | disposition short-term general hospital (02) | DRG 65 ==
LOC: EMR 01:55 → 4E 02:39 → EDBEDREQ 04:15 → 2W 22:42 → 2E 01-03 06:01
DX: I63.89 Other cerebral infarction (principal); G81.94 Hemiplegia, unspecified affecting left nondominant side; E86.9 Volume depletion, unspecified; R47.1 Dysarthria and anarthria; D75.1 Secondary polycythemia; E78.5 Hyperlipidemia, unspecified; I12.9 Hypertensive chronic kidney disease with stage 1 through stage 4 chronic kidney disease, or unspecified chronic kidney disease; N18.9 Chronic kidney disease, unspecified
CPT/HCPCS: 36415; 70450; 70551; 71045; 80053; 81003; 82550; 83036; 83880; 84443; 84484; 85025; 85610; 85651; 85730; 86592; 87081; 93005; 93306; 93880; 96360; 99285